=== PATIENT | male | born 1985 | race Caucasian/White ===

== ENCOUNTER → 2022-01-27 | Emergency (ER) | payer SELFPAY ==
[~2022-01-27] VITALS: Ht 165.1 cm; Wt 122.6 kg
[2022-01-27 18:43] VITALS: BP 129/78
--- NOTE | 2022-01-27 20:45 | NUR ---
Patient discharged to home in stable condition. Written and verbal after care instructions given. Patient verbalizes understanding of instruction.
== END | disposition home or self-care (01) ==
LOC: ER 19:03 → EDBD 19:03
DX: F10.129 Alcohol abuse with intoxication, unspecified (principal); Y90.9 Presence of alcohol in blood, level not specified

== ENCOUNTER 2022-06-07 23:53 | Emergency (ER) | payer MEDICAID ==
[~2022-06-07] VITALS: Ht 165.1 cm; Wt 90.7 kg
--- NOTE | 2022-06-08 05:01 | NUR ---
Patient discharged to home in stable condition. Written and verbal after care instructions given. Patient verbalizes understanding of instruction.
[2022-06-08 05:52] VITALS: BP 141/80
== END 2022-06-08 05:52 | disposition home or self-care (01) ==
LOC: ER 23:55
DX: F10.129 Alcohol abuse with intoxication, unspecified (principal); Y90.9 Presence of alcohol in blood, level not specified

== ENCOUNTER 2024-02-07 19:49 | Emergency (ER) | payer MEDICAID ==
[~2024-02-07] VITALS: Ht 172.7 cm; Wt 99.8 kg
[2024-02-08 05:26] VITALS: BP 133/78; TEMP 98.5; O2SAT 98
== END 2024-02-08 05:26 | disposition home or self-care (01) ==
LOC: ER 19:54
DX: F10.129 Alcohol abuse with intoxication, unspecified (principal)
CPT/HCPCS: 70450-TC